=== PATIENT | female | born 1985 | race Two or more races ===

== ENCOUNTER 2019-05-09 11:49 | Observation (INO) | payer MEDICAID ==
[~2019-05-09] VITALS: Ht 167.6 cm; Wt 80.7 kg
[2019-05-09] MEDS ORDERED: LACTATED RINGERS 1,000 ML IV SCH (12:42)
[2019-05-09 13:42] LABS: BASOPHILS % 0.4 % (0.0-2.0); EOSINOPHILS % 0.4 % (0.0-5.0); HEMATOCRIT. 33.2 % (36.0-48.0); HEMOGLOBIN. 11.5 g/dL (12.0-16.0); LYMPHOCYTES % 22.3 % (20.0-50.0); MEAN CORPUSCULAR HEMOGLOBIN 33.8 pg (28.0-32.0); MEAN CORPUSCULAR VOLUME 97.7 fL (81.0-99.0); MEAN PLATELET VOLUME 10.5 fl (7.4-10.4); MONOCYTES % 4.7 % (2.0-8.0); NEUTROPHILS % 72.2 % (40.0-76.0); PLATELET 128 x1000/uL (130-400); RED CELL DISTRIBUTION WIDTH 14.6 % (11.6-14.6)
[2019-05-09 13:51] LABS: CLARITY URINE CLEAR (CLEAR); COLOR URINE YELLOW (YELLOW); KETONES URINE NEGATIVE (NEGATIVE); LEUKOCYTE ESTERASE URINE 1+ (NEGATIVE); NITRITE URINE NEGATIVE (NEGATIVE); OCCULT BLOOD URINE NEGATIVE (NEGATIVE); PROTEIN URINE NEGATIVE (NEGATIVE); SPECIFIC GRAVITY URINE 1.011 (1.005-1.030); UROBILINOGEN URINE 0.2 E.U./dL (0.2-1.0)
== END 2019-05-09 15:35 | disposition home or self-care (01) ==
LOC: 8 EST LDRP 11:49
PROVIDERS: ADMIT Obstetrics & Gynecology; ATTEND Obstetrics & Gynecology
DX: O26.893 Other specified pregnancy related conditions, third trimester (principal); R10.30 Lower abdominal pain, unspecified; M54.9 Dorsalgia, unspecified; Z3A.34 34 weeks gestation of pregnancy
CPT/HCPCS: 36415; 76805; 76818; 81003; 85025; 99281; G0378; 96360; 96361; J7120

== ENCOUNTER 2019-06-26 17:58 | Emergency (ER) | payer MEDICAID ==
[~2019-06-26] VITALS: Ht 167.6 cm; Wt 82.0 kg
[2019-06-26] MEDS ORDERED: KETOROLAC 30MG/ML VIAL IV ONE (19:15)
[2019-06-26 21:16] LABS: CHLORIDE 108 mEq/L (98-107)
[2019-06-26 22:31] VITALS: BP 123/75
== END 2019-06-26 22:39 | disposition home or self-care (01) ==
LOC: ER 17:58
DX: K80.20 Calculus of gallbladder without cholecystitis without obstruction (principal); M54.5 Low back pain; Z98.890 Other specified postprocedural states
CPT/HCPCS: 36415; 76705; 80048; 96374; 99284; J1885; Z7610